=== PATIENT | male | born 1990 | race Caucasian/White ===

== ENCOUNTER 2017-07-28 14:19 | Emergency (ER) | payer BC, MEDICAID ==
[~2017-07-28] VITALS: Ht 175.3 cm; Wt 83.5 kg
[2017-07-28] MEDS ORDERED: OXCARBAZEPINE 300 MG TABLET PO (14:35)
[2017-07-28] MEDS ORDERED: QUETIAPINE FUMARATE 100 MG TAB PO (14:35)
--- NOTE | 2017-07-28 14:48 | NUR ---
Patient discharged to home in stable conditon. Written and verbal after care instructions given to patient with one Ambien prescription. Patient verbalizes understanding of instructions. Patient left ER with brisk steady gait.
== END 2017-07-28 14:50 | disposition home or self-care (01) ==
LOC: ER 14:19
DX: G47.00 Insomnia, unspecified (principal); F17.200 Nicotine dependence, unspecified, uncomplicated
CPT/HCPCS: 99283; A4663